=== PATIENT | female | born 1995 | race Caucasian/White ===

== ENCOUNTER 2020-08-26 14:03 | Emergency (ER) | payer MEDICAID ==
[~2020-08-26] VITALS: Ht 170.2 cm; Wt 61.3 kg
[2020-08-26 14:21] VITALS: BP 123/86
--- NOTE | 2020-08-26 14:27 | NUR ---
Pt ambulated to ER bed 7.
--- NOTE | 2020-08-26 14:28 | NUR ---
25 Y/O FEMALE HERE FOR MEDICATION REFILL. PT STATES SHE RAN OUT OF METFORMIN & GLIPIZIDE X1 MONTH AND DOES NOT HAVE A PCP AT THIS TIME. BLOOD SUGAR 300 IN TRIAGE AFTER HAVING SOME LUNCH. PT STATES SHE FEELS SLIGHTLY DIZZY BUT ABLE TO WALK WITH A STEADY GAIT. PT DENIES N/V, DENIES SOB, DENIES FEVER/CHILLS. DENIES PAIN. PMH: DM, HLD NKA
--- NOTE | 2020-08-26 14:52 | NUR ---
HAYLEY Wright at pt bedside for further evaluation.
[2020-08-26] MEDS ORDERED: EZET1TAB PO (15:03)
[2020-08-26] MEDS ORDERED: GLIP1TAB40 PO (15:03)
[2020-08-26] MEDS ORDERED: glucometer (15:13)
[2020-08-26] MEDS ORDERED: LANC-886 TP (15:13)
--- NOTE | 2020-08-26 15:15 | NUR ---
Patient discharged with v/s stable. Written and verbal after care instructions given and explained. Patient alert, oriented and verbalized understanding of instructions. Ambulatory with steady gait. All questions addressed prior to discharge. ID band removed. Patient advised to follow up with PMD. Rx of GLIPIZID-METFORMIN, VYTORIN & GLUCOMETER given. Patient educated on indication of medication including possible reaction and side effects. Opportunity to ask questions provided and answered.
[2020-08-26 15:17] VITALS: BP 123/86
[2020-08-27] MEDS ORDERED: NAPR-54 PO (17:50)
== END 2020-08-26 15:15 | disposition home or self-care (01) ==
LOC: MED 14:03
DX: Z76.0 Encounter for issue of repeat prescription (principal); E11.9 Type 2 diabetes mellitus without complications; E78.5 Hyperlipidemia, unspecified; Z79.84 Long term (current) use of oral hypoglycemic drugs; Z79.899 Other long term (current) drug therapy
CPT/HCPCS: 99281

== ENCOUNTER 2020-08-27 16:57 | Emergency (ER) | payer MEDICAID ==
[~2020-08-27] VITALS: Ht 170.2 cm; Wt 60.8 kg
[~2020-08-27 16:57] MED LIST: EZET1TAB PO; GLIP1TAB40 PO; LANC-886 TP; glucometer
[2020-08-27 17:13] VITALS: BP 129/87
[2020-08-27] MEDS ORDERED: KETOROLAC 30 MG/ML VIAL IM ONE (17:45)
[2020-08-27] MEDS ORDERED: NAPR-54 PO (17:50)
[2020-08-27 18:14] VITALS: BP 121/84
== END 2020-08-27 18:15 | disposition home or self-care (01) ==
LOC: MED 16:57
DX: M26.609 Unspecified temporomandibular joint disorder, unspecified side (principal); E11.9 Type 2 diabetes mellitus without complications; Z79.84 Long term (current) use of oral hypoglycemic drugs; Z79.899 Other long term (current) drug therapy
CPT/HCPCS: 96372; 99283; J1885

== ENCOUNTER 2020-10-02 15:57 | Emergency (ER) | payer MEDICAID ==
[~2020-10-02] VITALS: Ht 170.2 cm; Wt 69.9 kg
[~2020-10-02 15:57] MED LIST changes: +NAPR-54 PO
[2020-10-02 16:01] VITALS: BP 127/81
[2020-10-02 19:04] VITALS: BP 120/74
== END 2020-10-02 19:03 | disposition home or self-care (01) ==
LOC: MED 15:57
DX: R51.9 Headache, unspecified (principal); R22.0 Localized swelling, mass and lump, head; E11.9 Type 2 diabetes mellitus without complications; Z79.899 Other long term (current) drug therapy
CPT/HCPCS: 99281